=== PATIENT | female | born 1970 | race Caucasian/White ===

== ENCOUNTER 2018-10-19 14:12 | Emergency (ER) | payer MEDICAID, OTHER ==
[~2018-10-19] VITALS: Ht 175.3 cm; Wt 147.4 kg
[~2018-10-19 14:12] MED LIST: AZIT500T PO
[2018-10-19 14:26] VITALS: BP 105/65
[2018-10-19] MEDS ORDERED: IBUPROFEN 800 MG TAB PO ONE (15:30)
[2018-10-19] MEDS ORDERED: HYDROcodone-ACET 10/325MG TAB PO ONE (15:45)
== END 2018-10-19 16:12 | disposition home or self-care (01) ==
LOC: ER 14:18
DX: S62.354A Nondisplaced fracture of shaft of fourth metacarpal bone, right hand, initial encounter for closed fracture (principal); W50.2XXA Accidental twist by another person, initial encounter; Y93.01 Activity, walking, marching and hiking; Y92.89 Other specified places as the place of occurrence of the external cause; Y99.8 Other external cause status
CPT/HCPCS: 29125; 73100; 73120

== ENCOUNTER 2019-01-07 12:49 | Inpatient (IN) | payer OTHER | END 2019-01-28 18:50 | disposition home or self-care (01) | LOC: EAST 01-22 22:17 → ER 12:49 → TELE 17:10 → TELE-EAST 20:00 | DX: L03.116 Cellulitis of left lower limb (principal); N17.0 Acute kidney failure with tubular necrosis; I50.43 Acute on chronic combined systolic (congestive) and diastolic (congestive) heart failure; E44.0 Moderate protein-calorie malnutrition; E11.21 Type 2 diabetes mellitus with diabetic nephropathy; K70.9 Alcoholic liver disease, unspecified; E66.01 Morbid (severe) obesity due to excess calories; E11.65 Type 2 diabetes mellitus with hyperglycemia; E83.51 Hypocalcemia; E11.22 Type 2 diabetes mellitus with diabetic chronic kidney disease; E87.1 Hypo-osmolality and hyponatremia; F41.9 Anxiety disorder, unspecified; N18.9 Chronic kidney disease, unspecified; Z68.28 Body mass index [BMI] 28.0-28.9, adult; K76.0 Fatty (change of) liver, not elsewhere classified; E88.09 Other disorders of plasma-protein metabolism, not elsewhere classified; E87.6 Hypokalemia ==